=== PATIENT | male | born 1995 | race Caucasian/White ===

== ENCOUNTER 2023-04-29 15:04 | Emergency (ER) | payer MEDICAID, OTHER ==
[~2023-04-29] VITALS: Ht 177.8 cm; Wt 74.8 kg
[2023-04-29 15:13] VITALS: BP 113/76; TEMP 98
[2023-04-29] MEDS ORDERED: IBUPROFEN 600 MG TABLET ONE (15:27)
[2023-04-29] MEDS: IBUPROFEN 600 MG TABLET PO ONE (15:29)
[2023-04-29 16:59] VITALS: O2SAT 98
== END 2023-04-29 16:59 | disposition home or self-care (01) ==
LOC: ER 15:14
DX: R07.81 Pleurodynia (principal); E11.9 Type 2 diabetes mellitus without complications
CPT/HCPCS: 71045-TC

== ENCOUNTER 2024-03-25 13:44 | Emergency (ER) | payer OTHER ==
[~2024-03-25] VITALS: Ht 177.8 cm; Wt 68.0 kg
[2024-03-25] MEDS: IV NS 0.9% 1,000 ML BAG IV ONE (15:00)
[2024-03-25 15:45] LABS: BASOPHILS % (AUTO) 0.5 % (0.0-2.0); EOSINOPHILS % (AUTO) 0.4 % (0.0-6.0); HEMATOCRIT 45 % (39-51); HEMOGLOBIN 16.1 g/dL (13.5-17.5); LYMPHOCYTES # (AUTO) 1.5 K/uL (0.8-4.8); LYMPHOCYTES % (AUTO) 16.9 % (20.0-44.0); MEAN CORPUSCULAR HEMOGLOBIN 31 PG (26.0-33.0); MEAN CORPUSCULAR HGB CONC 36 g/dl (31.0-36.0); MEAN CORPUSCULAR VOLUME 86 fL (80-96); MONOCYTES # (AUTO) 0.7 K/uL (0.1-1.30); MONOCYTES % (AUTO) 7.6 % (2.0-12.0); NEUTROPHILS # (AUTO) 6.5 K/uL (1.8-8.9); NEUTROPHILS % (AUTO) 74.6 % (43.0-81.0); PLATELET COUNT (AUTO) 372 K/uL (150-450); RED BLOOD CELL COUNT(AUTO) 5.22 MIL/uL (4.5-6.0); RED CELL DISTRIBUTION WIDTH 13.1 % (11.5-15.0); WHITE BLOOD COUNT (AUTO) 8.7 K/uL (4.3-11.0)
[2024-03-25 15:58] LABS: CALCIUM, SERUM 9.4 mg/dL (8.5-10.1); CREATININE 1.3 mg/dL (0.6-1.3); POTASSIUM 3.4 mmol/L (3.5-5.1)
[2024-03-25 16:07] LABS: ALBUMIN 5.1 g/dL (3.4-5.0); BILIRUBIN,DIRECT 0.2 mg/dL (0.0-0.2); BILIRUBIN,TOTAL 0.7 mg/dL (0.2-1.0); TOTAL PROTEIN, SERUM 9.3 g/dL (6.4-8.2)
[2024-03-25] MEDS: IV NS 0.9% 500 ML BAG IV ONE (16:41)
[2024-03-25 16:53] LABS: PHOSPHORUS 4.3 mg/dL (2.5-4.9)
[2024-03-25] MEDS ORDERED: POTASSIUM CL. PREMIX PERIPHER. 50 ML IV SCH (17:00)
[2024-03-25] MEDS ORDERED: POTASSIUM CL. PREMIX PERIPHER. 50 ML ONE (17:07)
[2024-03-25] MEDS: POTASSIUM CL. PREMIX PERIPHER. 50 ML IV SCH (17:19)
[2024-03-25] MEDS: KETOROLAC TROMETHAMINE 15 MG/ML VIAL IV ONE (17:21)
[2024-03-25] MEDS ORDERED: KETOROLAC TROMETHAMINE 15 MG/ML VIAL ONE (17:22)
[2024-03-25] MEDS ORDERED: ONDANSETRON HCL/PF 4 MG/2 ML VIAL ONE (18:55)
[2024-03-25] MEDS: ONDANSETRON HCL/PF 4 MG/2 ML VIAL IV ONE (18:59)
[2024-03-25 19:28] VITALS: BP 104/76; TEMP 98; O2SAT 99
[2024-03-26] MEDS ORDERED: INSU100I47 SQ (11:53)
[2024-03-26] MEDS ORDERED: INSU100I30 SQ (11:53)
[2024-03-26] MEDS ORDERED: PANT20TA17 PO (11:53)
[2024-03-26] MEDS ORDERED: VALA100026 PO (11:53)
== END 2024-03-25 19:29 | disposition home or self-care (01) ==
LOC: ER 13:58
DX: R10.84 Generalized abdominal pain (principal); R11.2 Nausea with vomiting, unspecified; R06.02 Shortness of breath; E10.9 Type 1 diabetes mellitus without complications; E86.0 Dehydration; Z79.4 Long term (current) use of insulin
CPT/HCPCS: 99284; 96365; 96375; 96361; 85025; 80048; 83690; 80076; 83735; 84100; 36415; 82962; J1885; J2405; J7040; J3480; A4223

== ENCOUNTER 2024-03-26 05:21 | Inpatient (IN) | payer OTHER ==
[2024-03-26] VITALS (9 sets, daily range): BP systolic 102–121; BP diastolic 71–87; TEMP 98.3–98.4; O2SAT 96–100
[~2024-03-26] VITALS: Ht 177.8 cm; Wt 69.9 kg
[2024-03-26] MEDS ORDERED: FAMOTIDINE/PF INJ 20 MG/2 ML VIAL IV ONE (05:38)
[2024-03-26] MEDS ORDERED: ONDANSETRON HCL/PF 4 MG/2 ML VIAL ONE ×2 (05:38→12:34)
[2024-03-26] MEDS: FAMOTIDINE/PF INJ 20 MG/2 ML VIAL IV ONE (05:39)
[2024-03-26] MEDS: IV NS 0.9% 1,000 ML BAG IV ONE ×2 (05:39→06:57)
[2024-03-26] MEDS: ONDANSETRON HCL/PF 4 MG/2 ML VIAL IVP ONE (05:40)
[2024-03-26 06:03] LABS: BASOPHILS # (AUTO) 0.1 K/uL (0.0-0.2); BASOPHILS % (AUTO) 0.4 % (0.0-2.0); EOSINOPHILS % (AUTO) 0.2 % (0.0-6.0); HEMATOCRIT 48 % (39-51); HEMOGLOBIN 15.2 g/dL (13.5-17.5); LYMPHOCYTES # (AUTO) 1.2 K/uL (0.8-4.8); LYMPHOCYTES % (AUTO) 9.5 % (20.0-44.0); MEAN CORPUSCULAR HEMOGLOBIN 29 PG (26.0-33.0); MEAN CORPUSCULAR HGB CONC 32 g/dl (31.0-36.0); MEAN CORPUSCULAR VOLUME 91 fL (80-96); MONOCYTES # (AUTO) 0.5 K/uL (0.1-1.30); MONOCYTES % (AUTO) 4.4 % (2.0-12.0); NEUTROPHILS # (AUTO) 10.6 K/uL (1.8-8.9); NEUTROPHILS % (AUTO) 85.5 % (43.0-81.0); PLATELET COUNT (AUTO) 371 K/uL (150-450); RED BLOOD CELL COUNT(AUTO) 5.23 MIL/uL (4.5-6.0); RED CELL DISTRIBUTION WIDTH 13.4 % (11.5-15.0); WHITE BLOOD COUNT (AUTO) 12.5 K/uL (4.3-11.0)
[2024-03-26 06:18] LABS: ALBUMIN 4.8 g/dL (3.4-5.0); BILIRUBIN,DIRECT 0.2 mg/dL (0.0-0.2); BILIRUBIN,TOTAL 0.7 mg/dL (0.2-1.0); CALCIUM, SERUM 8.8 mg/dL (8.5-10.1); CREATININE 1.5 mg/dL (0.6-1.3); POTASSIUM 4.9 mmol/L (3.5-5.1); TOTAL PROTEIN, SERUM 8.7 g/dL (6.4-8.2)
[2024-03-26] MEDS ORDERED: MORPHINE SULFATE INJ 4 MG/ML DISP.SYRIN ONE ×2 (06:20→12:35)
[2024-03-26] MEDS: MORPHINE SULFATE INJ 2 MG/ML DISP.SYRIN IV ONE (06:25)
[2024-03-26] MEDS ORDERED: INSULIN REGULAR, HUMAN 100 UNIT/ML 10 ML VIAL ONE (06:47)
[2024-03-26] MEDS: INSULIN REGULAR, HUMAN 100 UNITS in IV NS 0.9% 100 ML IV PRN (07:00)
[2024-03-26 07:15] LABS: ABG BASE EXCESS -25.8 mmol/L (-2.0-3.0); ABG OXYGEN SATURATION 84.9 % (94.0-98.0); ABG PCO2 8.2 mmHg (35.0-48.0); ABG PH 7.054 (7.350-7.450); ABG PO2 57.5 mmHg (83.0-108.0); ABG TOTAL HEMOGLOBIN 5.4 G/dL (13.5-17.5); COHb 0.1 % (0.5-1.5); MetHb 1.4 % (0.0-1.5); O2Hb 83.6 % (94.0-97.0); SITE, ABG RIGHT BRACHIAL
[2024-03-26 07:18] LABS: MAGNESIUM 2.1 mg/dL (1.8-2.4); PHOSPHORUS 3.7 mg/dL (2.5-4.9)
[2024-03-26 07:30] LABS: LACTIC ACID 2.3 mmol/L (0.4-2.0)
[2024-03-26] MEDS ORDERED: CT SWABBABLE VALVE TRANS SET 1 EA INFUS.SET MC ONE (07:34)
[2024-03-26] MEDS ORDERED: IOHEXOL-300 100 ML VIAL IV ONE (07:34)
[2024-03-26] MEDS ORDERED: IV NS 0.9% 250 ML IV ONE (07:34)
[2024-03-26 07:57] LABS: APPEARANCE,URINE CLEAR (CLEAR); BILIRUBIN,URINE NEGATIVE (NEGATIVE); BLOOD, URINE TRACE-INTA Ery/uL (NEGATIVE); COLOR,URINE YELLOW (YELLOW); KETONES,URINE 3+ mg/dL (NEGATIVE); LEUKOCYTE ESTERASE ,URINE NEGATIVE (NEGATIVE); NITRITE, URINE NEGATIVE (NEGATIVE); PH,URINE 5.5 (5.0-8.0); PROTEIN,URINE 1+ mg/dl (NEGATIVE); UGLUCOSE 2+ mg/dL (NEGATIVE); UROBILINOGEN,URINE 0.2 EU/dL (0.2)
[2024-03-26] MEDS ORDERED: ZOLPIDEM TARTRATE 5 MG TABLET PO PRN (08:00)
[2024-03-26] MEDS ORDERED: MAGNESIUM HYDROXIDE 30 ML UDC PO PRN (08:00)
[2024-03-26] MEDS ORDERED: ACETAMINOPHEN 325 MG TABLET PO PRN (08:00)
[2024-03-26] MEDS ORDERED: IV NS 0.9% 1,000 ML IV PRN (08:00)
[2024-03-26] MEDS ORDERED: MAG HYDROX/AL HYDROX/SIMETH 30 ML UDC PO PRN (08:00)
[2024-03-26] MEDS ORDERED: Z GUARD REMEDY 4 OZ OINT TP PRN (08:00)
[2024-03-26 08:09] LABS: ADD URINE CULTURE NO; BACTERIA,URINE Rare /HPF (None Seen); RBC,URINE 0-2 /HPF (0-2); SQUAMOUS EPITHELIAL CELL,UR None Seen /HPF (None Seen); WBC,URINE 0-2 /HPF (0-3)
[2024-03-26] MEDS: IV PREMIX D5 1/2NS + KCL 1,000 ML IV ONE (08:30)
[2024-03-26] MEDS: BLOOD SUGAR DIAGNOSTIC 1 EACH STRIP IN SCH (09:00)
[2024-03-26] MEDS: IV D5/0.45 NACL W/20 MEQ KCL 1L IV SCH (09:00)
[2024-03-26] MEDS ORDERED: INSU100I47 SQ (11:53)
[2024-03-26] MEDS ORDERED: INSU100I30 SQ (11:53)
[2024-03-26] MEDS ORDERED: PANT20TA17 PO (11:53)
[2024-03-26] MEDS ORDERED: VALA100026 PO (11:53)
[2024-03-26] MEDS: ENOXAPARIN SODIUM 40 MG/0.4 ML DISP.SYRIN SQ SCH (12:00)
[2024-03-26] MEDS: PANTOPRAZOLE 40 MG VIAL IV SCH (12:30)
[2024-03-26] MEDS ORDERED: PANTOPRAZOLE 40 MG VIAL ONE (12:34)
[2024-03-26] MEDS ORDERED: ENOXAPARIN SODIUM 40 MG/0.4 ML DISP.SYRIN SQ ONE (12:36)
[2024-03-26] MEDS: ONDANSETRON HCL/PF 4 MG/2 ML VIAL IVP PRN (12:40)
[2024-03-26] MEDS: MORPHINE SULFATE INJ 4 MG/ML DISP.SYRIN IV PRN (12:45)
[2024-03-26] MEDS: INSULIN REGULAR, HUMAN 100 UNIT in IV NS 0.9% 99 ML IV PRN (15:49)
[2024-03-26 16:25] LABS: CALCIUM, SERUM 7.9 mg/dL (8.5-10.1); CREATININE 1.2 mg/dL (0.6-1.3); POTASSIUM 4.1 mmol/L (3.5-5.1)
[2024-03-26 21:06] LABS: CALCIUM, SERUM 8.1 mg/dL (8.5-10.1); CREATININE 1.2 mg/dL (0.6-1.3); POTASSIUM 3.8 mmol/L (3.5-5.1)
[2024-03-27] VITALS (16 sets, daily range): BP systolic 91–123; BP diastolic 63–80; TEMP 98–98.4; O2SAT 95–99
[2024-03-27 01:12] LABS: CALCIUM, SERUM 8.1 mg/dL (8.5-10.1); POTASSIUM 3.6 mmol/L (3.5-5.1)
[2024-03-27 04:10] LABS: BASOPHILS % (AUTO) 0.4 % (0.0-2.0); EOSINOPHILS # (AUTO) 0.1 K/uL (0.0-0.7); EOSINOPHILS % (AUTO) 1.6 % (0.0-6.0); HEMATOCRIT 38 % (39-51); HEMOGLOBIN 13.3 g/dL (13.5-17.5); LYMPHOCYTES # (AUTO) 1.3 K/uL (0.8-4.8); LYMPHOCYTES % (AUTO) 21.1 % (20.0-44.0); MEAN CORPUSCULAR HEMOGLOBIN 30 PG (26.0-33.0); MEAN CORPUSCULAR HGB CONC 35 g/dl (31.0-36.0); MEAN CORPUSCULAR VOLUME 86 fL (80-96); MONOCYTES # (AUTO) 0.5 K/uL (0.1-1.30); MONOCYTES % (AUTO) 8.9 % (2.0-12.0); NEUTROPHILS # (AUTO) 4.2 K/uL (1.8-8.9); PLATELET COUNT (AUTO) 234 K/uL (150-450); RED BLOOD CELL COUNT(AUTO) 4.37 MIL/uL (4.5-6.0); RED CELL DISTRIBUTION WIDTH 12.6 % (11.5-15.0); WHITE BLOOD COUNT (AUTO) 6.1 K/uL (4.3-11.0)
[2024-03-27 04:29] LABS: CALCIUM, SERUM 8.3 mg/dL (8.5-10.1); MAGNESIUM 1.6 mg/dL (1.8-2.4); PHOSPHORUS 1.8 mg/dL (2.5-4.9); POTASSIUM 3.6 mmol/L (3.5-5.1)
[2024-03-27 04:40] LABS: THYROID STIMULATING HORMONE 0.45 uIU/mL (0.358-3.74)
[2024-03-27 08:46] LABS: CREATININE 0.9 mg/dL (0.6-1.3); POTASSIUM 3.5 mmol/L (3.5-5.1)
[2024-03-27] MEDS ORDERED: Magnesium 1 GM/2 ML VIAL IV ONE (10:30)
[2024-03-27] MEDS: Magnesium 1GM/D5W 100ML PREMIX 100 ML IV SCH (11:07)
[2024-03-27] MEDS: Sodium Phosphate 30 MMOL in IV NS 0.9% 250 ML IV SCH (11:39)
[2024-03-27] MEDS ORDERED: Magnesium 1GM/D5W 100ML PREMIX 100 ML IV SCH (12:00)
[2024-03-27 12:44] LABS: CALCIUM, SERUM 8.2 mg/dL (8.5-10.1); CREATININE 0.9 mg/dL (0.6-1.3); POTASSIUM 3.3 mmol/L (3.5-5.1)
[2024-03-27] MEDS: POTASSIUM CHLORIDE 20 MEQ POWDER PACKET PO ONE (14:07)
[2024-03-27] MEDS: INSULIN GLARGINE, 100 UNIT/ML CARTRIDGE SQ ONE (14:34)
[2024-03-27] MEDS ORDERED: DEXTROSE 50%-WATER 50 ML DISP.SYRIN IV PRN (15:00)
[2024-03-27] MEDS ORDERED: INSULIN REGULAR, HUMAN 100 UNIT/ML 3 ML VIAL SQ PRN (17:00)
[2024-03-27] MEDS ORDERED: BLOOD SUGAR DIAGNOSTIC 1 EACH STRIP IN SCH (17:30)
[2024-03-27] MEDS ORDERED: INSULIN GLARGINE, 100 UNIT/ML CARTRIDGE SQ SCH (22:00)
== END 2024-03-27 15:05 | disposition left against medical advice (07) | DRG 420 ==
LOC: ER 05:28 → TRANSITION 10:55 → ICU 14:25
PROVIDERS: ADMIT Student in an Organized Health Care Education/Training Program; ATTEND Student in an Organized Health Care Education/Training Program
DX: E10.10 Type 1 diabetes mellitus with ketoacidosis without coma (principal); N17.0 Acute kidney failure with tubular necrosis; K51.90 Ulcerative colitis, unspecified, without complications; Z79.4 Long term (current) use of insulin; Z79.899 Other long term (current) drug therapy; E87.1 Hypo-osmolality and hyponatremia; Z91.199 Patient's noncompliance with other medical treatment and regimen due to unspecified reason
CPT/HCPCS: 36415; 80048-TC; 80076-TC; 81001; 82010-TC; 82962-TC; 83605-TC; 83690-TC; 83735-TC; 84100-TC; 84443-TC; 85025-TC; 85652-TC; 87081-TC; A4217; A4223; A9563; G0378; J1650; J1815; J2270; J2405; J2470; J3475; J3480; J3490; J7030; J7050; Q9967